=== PATIENT | female | born 1960 | race Caucasian/White ===

== ENCOUNTER 2019-12-25 19:51 | Emergency (ER) | payer SELFPAY ==
--- NOTE | ~2019-12-25 | XR_ITS ---
EXAMINATION: XR shoulder RT min 2V DATE: 12/25/2019 20:56 INDICATION: Right shoulder pain. Fall. TECHNIQUE: 4 views of right shoulder were obtained. COMPARISON: None. FINDINGS: Bone alignment is normal. No fracture. There is moderate osteoarthritis of glenohumeral mac nt and mild osteoarthritis of acromioclavicular joint. IMPRESSION: 1. Polyarticular osteoarthritis. Reviewed, dictated and finalized at location A.
--- NOTE | ~2019-12-25 | XR_ITS ---
EXAMINATION: XR foot LT min 3V DATE: 12/25/2019 20:55 INDICATION: Left foot pain. TECHNIQUE: 4 views of left foot were obtained. COMPARISON: None. FINDINGS: Bone alignment is normal. No acute fracture. There is a pin in medial malleolus. There is m oderate midfoot osteoarthritis. There is an enthesophyte at plantar aspect of calcaneal tuberosity. IMPRESSION: 1. Moderate midfoot osteoarthritis. Reviewed, dictated and finalized at location A.
--- NOTE | ~2019-12-25 | XR_ITS ---
EXAMINATION: XR knee LT min 4V DATE: 12/25/2019 20:56 INDICATION: Left knee pain. TECHNIQUE: 4 views of left knee were obtained. COMPARISON: None. FINDINGS: Bone alignment is normal. No fracture. There is mild tricompartmental osteoarthritis. There is a small knee joint effusion. IMPRESSION: 1. Mild left knee osteoarthritis. 2. Small left knee joint effusion. Reviewed, dictated and finalized at location A.
[2019-12-25 19:55] VITALS: BP 170/78; PULSE 99; RESP 18; TEMP 37.1; O2SAT 98
--- NOTE | 2019-12-25 22:00 | ED.GENADULT ---
HPI - General Adult General Chief complaint: Fall Stated complaint: fall Time Seen by Provider: 12/25/19 20:09 Source: patient Mode of arrival: ambulatory Limitations: no limitations History of Present Illness HPI narrative: Patient is a 59-year-old female who presents to emergency department for evaluation of injuries related to a ground-level fall after slipping in the shower yesterday patient notes aching pain of the left ankle laterally left knee laterally and right shoulder laterally that occurred after her fall pain is a mild aching pain worse with activity and movement. Patient denies head injury syncope loss of consciousness. Patient is taken [id number] medication with some improvement Related Data Allergies Allergy/AdvReac Type Severity Reaction Status Date / Time No Known Allergies Allergy Mild Verified 12/25/19 19:58 Review of Systems Review of Systems: All systems reviewed & are unremarkable except as noted in HPI and below PMFSH Past Medical History Medical History (Updated 12/25/19 @ 22:03 by Mariusz Cain PA-C) Obesity Surgical History Surgical History (Updated 12/25/19 @ 22:01 by Mariusz Cain PA-C) History of orthopedic surgery Social History Social History (Updated 12/25/19 @ 22:01 by Mariusz Cain PA-C) Smoking status: Never smoker Gender identity (if verbalized by the patient): Female Exam Narrative: Exam Narrative: GENERAL: Well-appearing, well-nourished, and in no acute distress. HEAD: Normocephalic, atraumatic. EYES: PERRLA and EOMI. ENT: Nares clear, no rhinorrhea or epistaxis. Mucous membranes moist. HEART: Regular rate and rhythm. No murmur heard. Normal peripheral pulses. EXTREMITIES: Tenderness of the left lateral ankle left lateral knee and right shoulder laterally with no deformities noted SKIN: Warm, dry, no rash. NEURO: No focal deficits. Alert and oriented x3. Cranial nerves II through XII grossly intact. Neurovascularly intact PSYCH: Normal mood and affect. Course Course Emergency Course: Patient in the room aware of case findings treatment plan and diagnosis agreeing to follow-up as directed Vital Signs Vital signs: Vital Signs Temperature 98.8 F 12/25/19 19:55 Pulse Rate 99 12/25/19 19:55 Respiratory Rate 18 12/25/19 19:55 Blood Pressure 170/78 H 12/25/19 19:55 Pulse Oximetry 98 12/25/19 19:55 Temperature 98.8 F 12/25/19 19:55 Pulse Rate 99 12/25/19 19:55 Respiratory Rate 18 12/25/19 19:55 Blood Pressure 170/78 H 12/25/19 19:55 Pulse Oximetry 98 12/25/19 19:55 Medical Decision Making MDM Narrative Medical decision making narrative: Patients injury or pain is consistent with musculoskeletal etiology. No signs of neurological or vascular compromise on exam. Compartments and tisues are soft without signs of compartment syndrome. Pain is felt appropriate for further evaluation on an outpatient basis. Vital Signs Vital Signs: Vital Signs Temperature 98.8 F 12/25/19 19:55 Pulse Rate 99 12/25/19 19:55 Respiratory Rate 18 12/25/19 19:55 Blood Pressure 170/78 H 12/25/19 19:55 Pulse Oximetry 98 12/25/19 19:55 Temperature 98.8 F 12/25/19 19:55 Pulse Rate 99 12/25/19 19:55 Respiratory Rate 18 12/25/19 19:55 Blood Pressure 170/78 H 12/25/19 19:55 Pulse Oximetry 98 12/25/19 19:55 Imaging Data Radiologist's impression: ITS Impressions Foot X-Ray 12/25/19 20:56 IMPRESSION: 1. Moderate midfoot osteoarthritis. Shoulder X-Ray 12/25/19 20:58 IMPRESSION: 1. Polyarticular osteoarthritis. Knee X-Ray 12/25/19 20:59 IMPRESSION: 1. Mild left knee osteoarthritis. 2. Small left knee joint effusion. Discharge Plan Discharge Clinical Impression: Left ankle sprain, Left knee sprain, Right shoulder strain Patient Disposition: Home, Self-Care Condition: Stable Instructions: Antibiotic Form, Muscle Strain (ED) Additional Instructions:
--- NOTE | 2019-12-25 22:00 | PC.NURSE ---
pt refusing norma wraps at this time provider aware and ok with decision
== END 2019-12-25 22:15 | disposition home or self-care (01) ==
PROVIDERS: Emergency Provider Emergency Medicine; PCP Internal Medicine
DX: S93.402A Sprain of unspecified ligament of left ankle, initial encounter (principal); S83.92XA Sprain of unspecified site of left knee, initial encounter; S46.911A Strain of unspecified muscle, fascia and tendon at shoulder and upper arm level, right arm, initial encounter; E66.9 Obesity, unspecified; Z68.41 Body mass index [BMI] 40.0-44.9, adult; M19.072 Primary osteoarthritis, left ankle and foot; M19.011 Primary osteoarthritis, right shoulder; M17.12 Unilateral primary osteoarthritis, left knee; W18.2XXA Fall in (into) shower or empty bathtub, initial encounter
CPT/HCPCS: 73030; 73564; 73630; 99284

== ENCOUNTER 2020-01-19 09:04 | Outpatient (RCR) | payer SELFPAY ==
--- NOTE | 2020-01-19 10:39 | PTOPEVAL ---
PHYSICAL THERAPY EVALUATION AND PLAN OF CARE 01-19-2020 The PT evaluation was completed for R shoulder and L knee pain. Carli was educated on a home exercise program, posture/positioning and progression of activity. Due to her insurance coverage, she is going to do the exercises on her own and to call for any concerns, or if additional PT is needed, to call for appointment. Recommendation is for 2x/week for 3 weeks[address] Mrs. Clemente will call for scheduling further appointments. Thank you for referring Carli Clemente to [facility]. Please review, sign, date and return this plan of care PHILL. I agree with and certify that the following plan of care is medically necessary. Referring Physician Date Attending Provider: Uziel Burleson MD *PT Outpatient Evaluation Start: 01/19/20 09:23 Document 01/19/20 09:10 SORAYA (Rec: 01/19/20 10:39 SORAYA [id number]) Therapy Assessment Status Assessment Status Assessment Status Evaluation Outpatient Past Medical History Past Medical History Source of Past Medical History Patient Neurological History Hx Neurological Disorders No Significant History Cardiovascular History Hx Hypertension Yes: meds Respiratory History Hx Asthma Yes: seasonal Gastrointestinal History Hx Gastrointestinal Disorders No Significant History Genitourinary History Hx Genitourinary Disorders No Significant History Musculoskeletal History Hx Arthritis Yes: R shoulder and L knee; Hx Orthopedic Surgery Yes: L rot cuff repair ~ 8 yr ago; L ankle ORIF 1999 Hematological History Hx Hematological Disorders No Significant History Endocrine History Hx Endocrine Disorders No Significant History HEENT History Hx HEENT Disorders No Significant History Evaluation Information Problem Diagnosis R shoulder pain, L knee pain Onset December 24, 2019 Subjective Information slipped in bath tub at hotel, Query Text:As Reported By Patient/ twisted knee, caught self with Family grab bar, did not hit the ground, knee pain onset; R shoulder had some pain from caring for ill mother, who is now in NH; after fall, R shoulder worse Diagnostic Tests X-Rays For This Problem Yes: R sh:mod QA A-c&GH joint; L knee mild OA,sm effusion Previous Treatments Previous Treatments For This Problem no previous PT Prior Level of Function Activity Level (Last 3 Months) Occupation office work Hand Dominance Right Activity of Daily Living Ability Independent Indoor/Home Mobility Independent Community Mobility Independent Stairs Ability Independent Functional Cognition (Planning, Shopping Independe
--- NOTE | 2020-03-06 16:17 | PCPTNOTE ---
PHYSICAL THERAPY DISCHARGE 03-06-2020 Attending Provider: Uziel Burleson MD Patient:Carli Clemente Date of :1960 Mrs. Clemente has not returned for any further treatments since the initial evaluation on 01/19/2020, for the diagnosis of pain in R shoulder and L knee. At the evaluation session, she reported she had issues with her insurance and not sure if she would return or not. She was issued home exercises. She will be discharged at this time. The goals were not addressed. Thank you for referring Carli to [facility]. Please review, sign, date and return this discharge summary PHILL. I have been updated about the patient's current status and I agree with discharge from the above service at this time. Referring Physician Date
== END 2020-03-07 07:44 | disposition home or self-care (01) ==
LOC: ANHPT 09:04
PROVIDERS: PCP Internal Medicine; Visit Provider Orthopaedic Surgery
DX: M25.511 Pain in right shoulder (principal); M25.562 Pain in left knee
CPT/HCPCS: 97162

== ENCOUNTER 2020-06-27 11:39 | Emergency (ER) | payer SELFPAY ==
--- NOTE | ~2020-06-27 | XR_ITS ---
EXAMINATION: XR esophogram water soluble DATE: 06/27/2020 12:43 NUTRITION DIRECTOR INDICATION: Foreign body in esophagus. Nausea and vomiting. TECHNIQUE: Water-soluble followed by thin barium contrast with gas effervescent crystals were adminis tered orally. Fluoroscopic images of the esophagus were obtained in various projections. The hypopha rynx was also examined. Thereafter, overhead images of the thoracic esophagrus were performed. 84 flu oroscopic images. FINDINGS: There is persistent narrowing of the distal esophagus at the gastroesophageal junction. No intraluminal foreign bodies are definitely identified. There is delayed passage of contrast from the distal esophagus into the stomach. No significant hiatal hernia or reflux is identified. No evidence for extravasation of contrast. IMPRESSION: 1. Persistent narrowing of the distal esophagus at the gastroesophageal junction with delayed passag e of contrast into the stomach, suspicious for stricture.No definite esophageal foreign bodies identi fied. Recommend GI consultation. Reviewed, dictated and finalized at location A. ITION DIRECTOR IMPRESSION: 1. Persistent narrowing of the distal esophagus at the gastroesophageal juncti on with delayed passage of contrast into the stomach, suspicious for stricture. No definite esophageal foreign bodies identified. Recommend GI consultation.
[2020-06-27 11:43] VITALS: BP 157/92; PULSE 108; RESP 19; TEMP 36.8; O2SAT 99
[2020-06-27 12:01] LABS: Basophils Absolute Auto 0.1 K/mm3 (0.0-0.1); Basophils Percent Auto 1.1 % (0.2-1.2); Eosinophils Percent Auto 0.4 % (0-4.4); Hematocrit 46.5 % (37.0-47.0); Hemoglobin 15.3 g/dL (12.0-15.0); Immature Granulocyte Absolute 0.07 K/mm3 (0.00-0.031); Immature Granulocyte Percent A 0.8 % (0-0.5); Lymphocytes Absolute Auto 2.56 K/mm3 (0.9-3.2); Lymphocytes Percent Auto 29.9 % (18.3-44.2); Mean Corpuscular HGB Conc 32.9 g/dl (32-36); Mean Corpuscular Hemoglobin 29.1 pg (26-34); Mean Corpuscular Volume 88.4 fl (80-100); Mean Platelet Volume 9.1 fl (7.4-10.4); Monocytes Absolute Auto 0.6 K/mm3 (0.1-0.6); Monocytes Percent Auto 6.4 % (2.6-8.5); Neutrophils Absolute Auto 5.3 K/mm3 (1.3-6.7); Neutrophils Percent Auto 61.4 % (45.5-73.1); Platelet Count Result 360 k/mm3 (150-375); Red Blood Count 5.26 M/mm3 (4.2-5.4); Red Cell Distribution Width 13.5 % (11.5-14.5); White Blood Count 8.6 K/mm3 (4.5-10.0)
--- NOTE | 2020-06-27 12:13 | ED.ABDPAIN ---
HPI - Abdominal Pain General Chief Complaint: Unspecified Stated Complaint: food stuck in esophagus Time Seen by Provider: 06/27/20 11:42 Source: patient Mode of arrival: ambulatory Limitations: no limitations History of Present Illness HPI narrative: Patient is a 60-year-old female who presents with mid sternal discomfort noting that she was eating last night had something become lodged patient has history of esophageal stricture patient knows that prior evening was unable to tolerate any liquids or saliva today she is able to tolerate her saliva continues to have some discomfort in the mid chest. Patient notes her certified diabetes educator has retired at this time. Patient with history of stricture and reflux. Patient on arrival also notes headache. Patient on arrival does not appear uncomfortable or in distress Related Data Home Medications Medication Instructions Recorded Confirmed glucosamine-chondroitin 2,000 15 ml PO BID 01/05/20 02/16/20 mg-1,200 mg/30 mL oral liquid lisinopril 20 mg tablet 20 mg PO DAILY 01/05/20 02/16/20 loratadine 10 mg tablet 10 mg PO DAILY 01/05/20 02/16/20 omeprazole 20 mg capsule,delayed 20 mg PO DAILY 01/05/20 02/16/20 release zolpidem 5 mg tablet 5 mg PO ONCE 01/05/20 02/16/20 Allergies Allergy/AdvReac Type Severity Reaction Status Date / Time acetaminophen [From Percocet] AdvReac Agitated Verified 06/27/20 11:48 oxycodone [From Percocet] AdvReac Agitated Verified 06/27/20 11:48 Review of Systems Review of Systems: All systems reviewed & are unremarkable except as noted in HPI and below PMFSH Past Medical History Medical History (Updated 06/27/20 @ 13:17 by Mariusz Cain PA-C) Arthritis of left knee Arthritis of right shoulder region Body mass index (BMI) 40.0-44.9, adult Obesity Surgical History Surgical History Broken ankle H/O shoulder surgery Left rotator cuff repair H/O: hysterectomy History of appendectomy Social History Social History Smoking status: Never smoker Gender identity (if verbalized by the patient): Female Exam Narrative: Exam Narrative: GENERAL: Well-appearing, well-nourished, and in no acute distress. HEAD: Normocephalic, atraumatic. EYES: PERRLA and EOMI. ENT: Nares clear, no rhinorrhea or epistaxis. Mucous membranes moist. CHEST: Clear to auscultation. No respiratory distress. No wheezes rales or rhonchi HEART: Regular rate and rhythm. No murmur heard. Normal peripheral pulses. ABDOMEN: Soft, nontender, nondistended EXTREMITIES: Normal range of motion. No edema. SKIN: Warm, dry, no rash. NEURO: No focal deficits. Alert and oriented x3. PSYCH: Normal mood and affect. Course Course Emergency Course: Patient evaluated in the emergency department had swallow study no obstruction does continue to have a stricture patient was hydrated and given medications in the emergency department tolerating p.o. intake will be sent home with GI follow-up discussion was made with certified diabetes educator who will follow the patient on an outpatient basis. Hemodynamically stable. ABCs intact Consultations Consultation #1: Discussed case with gastroenterology will follow the patient in clinic to discuss EGD planning Date: 06/27/20 Time: 13:14 Vital Signs Vital signs: Vital Signs Temperature 98.2 F 06/27/20 11:43 Pulse Rate 108 H 06/27/20 11:43 Respiratory Rate 19 06/27/20 11:43 Blood Pressure 157/92 H 06/27/20 11:43 Pulse Oximetry 99 06/27/20 11:43 Temperature 98.2 F 06/27/20 11:43 Pulse Rate 108 H 06/27/20 11:43 Respiratory Rate 19 06/27/20 11:43 Blood Pressure 157/92 H 06/27/20 11:43 Pulse Oximetry 99 06/27/20 11:43 MDM - Abdominal Pain MDM Narrative Medical decision making narrative: Patient with history of stricture was evaluated found to be safe for discharge ABCs stable hemodynamically stable elect
[2020-06-27 12:28] LABS: Alanine Aminotransferase 31 U/L (4-35); Albumin Level 4.4 g/dL (3.5-5.1); Alkaline Phosphatase 83 U/L (38-126); Anion Gap 11 mmol/L (8-16); Aspartate Amino Transferase 34 U/L (14-36); Bilirubin,Total 0.6 mg/dL (0.2-1.3); Blood Urea Nitrogen 18 mg/dL (7-17); Calcium 9.5 mg/dL (8.4-10.2); Carbon Dioxide 26 mmol/L (22-30); Chloride 102 mmol/L (98-107); Estimated Glomerular Filt Rate > 60; Glucose 107 mg/dL (65-105); Potassium 4.2 mmol/L (3.4-5.0); Sodium 139 mmol/L (137-145)
[2020-06-27] MEDS: KETOROLAC 30 MG/ML VIAL (*BKC) IV PUSH (13:00)
[2020-06-27] MEDS: GLUCAGON FOR INJ 1 MG VIAL IV PUSH (13:17)
[2020-06-27] MEDS: SODIUM CHLORIDE 0.9% IV 1,000 ML 999 ML IV CONT (13:17)
[2020-06-27] MEDS: PANTOPRAZOLE SODIUM IV 40 MG VIAL IV PUSH (13:17)
[2020-06-27] MEDS: HYOSCYAMINE SULFATE 0.125 MG TABLET PO (13:17)
[2020-06-27 13:37] VITALS: BP 148/80; PULSE 78; RESP 16; O2SAT 100
== END 2020-06-27 13:39 | disposition home or self-care (01) ==
PROVIDERS: Emergency Medicine Emergency Medical Services; Emergency Provider Emergency Medicine; PCP Internal Medicine
DX: K22.2 Esophageal obstruction (principal); M17.12 Unilateral primary osteoarthritis, left knee; M19.011 Primary osteoarthritis, right shoulder
CPT/HCPCS: 36415; 74220; 80053; 85025; 96374; 96375; 99284; A9270; C9113; J1610; J1885; J7030

== ENCOUNTER 2020-06-30 02:20 | Outpatient (CLI) | payer SELFPAY ==
[2020-06-30 20:00] LABS: SARS-CoV-2 RNA PCR Negative
== END 2020-06-30 02:21 | disposition home or self-care (01) ==
LOC: ANHCOVIDDT 02:20
PROVIDERS: PCP Internal Medicine; Visit Provider Internal Medicine Gastroenterology
DX: Z01.818 Encounter for other preprocedural examination (principal); Z20.828 Contact with and (suspected) exposure to other viral communicable diseases
CPT/HCPCS: 87635; C9803; U0003

== ENCOUNTER 2020-07-03 02:33 | Day surgery (SDC) | payer SELFPAY ==
[2020-06-28 13:48] VITALS: BMI 42.7
--- NOTE | 2020-07-03 08:34 | P.PNAN_ITS ---
Anes - Initial Pre Proc Eval Procedure: Operation Date: 07/03/20 10:30 Proposed Procedures p Esophagogastroduodenoscopy - Jim Robles MD Date/Time: 07/03/20 08:34 Surgeon: Jim Robles MD Pre Op Diagnosis: Esophageal Stricture Patient Data Age: 60 Gender: F Height: 1.63 m Weight: 113 kg Allergies Allergy/AdvReac Type Severity Reaction Status Date / Time acetaminophen [From Percocet] AdvReac Agitated Verified 07/03/20 09:42 oxycodone [From Percocet] AdvReac Agitated Verified 07/03/20 09:42 Home Medications Medication Instructions Recorded Confirmed Type lisinopril 20 mg tablet 20 mg PO DAILY 01/05/20 06/28/20 History omeprazole 20 mg capsule,delayed 20 mg PO DAILY 01/05/20 06/28/20 History release zolpidem 5 mg tablet 5 mg PO ONCE 01/05/20 06/28/20 History Patient hx anesthesia problems: none Family hx anesthesia problems: none [facility] Past Medical History Medical History (Updated 07/03/20 @ 08:35 by Rene Faye MD) Arthritis of left knee Arthritis of right shoulder region Asthma Body mass index (BMI) 40.0-44.9, adult HTN (hypertension) Obesity Surgical History Surgical History Broken ankle H/O shoulder surgery Left rotator cuff repair H/O: hysterectomy History of appendectomy Social History Social History Smoking status: Former smoker Alcohol intake: never Substance use type: does not use Living arrangements: with family Gender identity (if verbalized by the patient): Female Spiritual care concerns: No Anes - Eval Final PreProcedure Day of Procedure 07/03/20 08:34 Patient weight: morbidly obese Heart: regular rate and rhythm Lungs: clear to auscultation and normal air movement Airway: Mallampati scale class II Neurological: alert and oriented Last oral intake: >/= 8 hours ASA classification: III Emergent: no Anesthetic plan: proceed Anesthesia type and monitoring: general GIVS Informed Consent: The patient's anesthetic plan and its attendant risks and benefits were discussed with the patient/family/POA. Questions were solicited and answers provided to the satisfaction of the patient/family/POA.
[2020-07-03 09:44] VITALS: BP 146/82; PULSE 98; RESP 18; TEMP 36.9; O2SAT 96
[2020-07-03] MEDS: LACTATED RINGERS 1,000 ML 150 ML IV CONT (09:52)
--- NOTE | 2020-07-03 10:02 | P.CONGI_ITS ---
Assessment and Plan Assessment and plan (1) Dysphagia: Code(s): R13.10 - Dysphagia, unspecified Status: Acute Assessment and Plan: Patient complains of difficulty swallowing solid foods more so than liquid fo ods. She has had a history of esophageal stricture is had 3 prior endoscopies dilatations. She is maintained on omeprazole for presumed GE reflux disease. Plan is for an EGD for possible dilatation. Further recommendations may be given after endoscopy. (2) Body mass index (BMI) 40.0-44.9, adult: Code(s): Z68.41 - Body mass index [BMI]40.0-44.9, adult Status: Acute GI Consult Note Consult date/time: 07/03/20 10:02 HPI: Carli Clemente is a 60 year old female Presents for evaluation of difficulty swallowing. Patient states for several months has had difficulty swallowing. His solid food will hang up in the mid substernal portion the chest more often than liquids. She drinks liquids and soft foods with no difficulty. She denies any heartburn. In the past she has been told she had acid reflux. Currently on omeprazole 20 mg p.o. daily this appears control any burning. She states she has had an esophageal stricture with a ring dilated at least 3 prior endoscopies elsewhere. Her last endoscopy was about 4 years ago. Her family history is noncontributory. Today she presents for EGD. Review of Systems Review of Systems: All systems reviewed & are unremarkable except as noted in HPI and below PMFSH Past Medical History Medical History Arthritis of left knee Arthritis of right shoulder region Asthma Body mass index (BMI) 40.0-44.9, adult HTN (hypertension) Obesity Surgical History Surgical History Broken ankle H/O shoulder surgery Left rotator cuff repair H/O: hysterectomy History of appendectomy Social History Social History Smoking status: Former smoker Alcohol intake: never Substance use type: does not use Living arrangements: with family Gender identity (if verbalized by the patient): Female Spiritual care concerns: No Meds Home Medications and Allergies Home Medications Medication Instructions Recorded Confirmed Type lisinopril 20 mg tablet 20 mg PO DAILY 01/05/20 06/28/20 History omeprazole 20 mg capsule,delayed 20 mg PO DAILY 01/05/20 06/28/20 History release zolpidem 5 mg tablet 5 mg PO ONCE 01/05/20 06/28/20 History Allergies Allergy/AdvReac Type Severity Reaction Status Date / Time acetaminophen [From Percocet] AdvReac Agitated Verified 07/03/20 09:42 oxycodone [From Percocet] AdvReac Agitated Verified 07/03/20 09:42 Vital Signs Vital Signs - 24 hr 07/03/20 09:44 Temperature 98.5 F Pulse Rate 98 Respiratory Rate 18 Blood Pressure 146/82 H Pulse Oximetry 96 Exam Narrative: Exam Narrative: Physical exam reveals patient be alert. Vital signs stable. HEENT exam unremarkable. Lungs are clear to auscultation and percussion. Heart is without murmur or extra sounds. Abdominal exam is somewhat obese. Bowel sounds are present soft nontender no obvious organomegaly. Rectal exam is deferred at this time.
[2020-07-03] MEDS: BENZOCAINE (*SP) 60 ML SPRAY CAN (HURRICAINE) 1 SPRAY MUCOUS MEM (10:06)
[2020-07-03 10:13] VITALS: BP 147/95; PULSE 96; O2SAT 93
[2020-07-03 10:23] VITALS: BP 140/86; PULSE 92; O2SAT 96
[2020-07-03 10:33] VITALS: BP 151/92; PULSE 77; O2SAT 96
== END 2020-07-03 11:01 | disposition home or self-care (01) ==
PROVIDERS: PCP Internal Medicine; Visit Provider Internal Medicine Gastroenterology
PROC: 0DJ08ZZ Inspection of Upper Intestinal Tract, Via Natural or Artificial Opening Endoscopic (ICD-10-PCS; CPT 43235; principal; 2020-07-03 10:30)
DX: K22.2 Esophageal obstruction (principal); R13.10 Dysphagia, unspecified; I10 Essential (primary) hypertension; M17.12 Unilateral primary osteoarthritis, left knee; M19.011 Primary osteoarthritis, right shoulder; Z87.891 Personal history of nicotine dependence; E66.01 Morbid (severe) obesity due to excess calories; Z68.41 Body mass index [BMI] 40.0-44.9, adult
CPT/HCPCS: 43235; 43450; J2704; J7120

== ENCOUNTER 2022-02-11 01:48 | Day surgery (SDC) | payer OTHER, SELFPAY ==
[2022-02-05 10:38] VITALS: BMI 41.1
--- NOTE | 2022-02-05 10:46 | PC.NURSE ---
Report to the Outpatient Waiting Room, entrance under the green pavilion located off [facility], at time 0730 on date 02/11/22. OR Time: 0930. - You and your visitor will be asked a series of questions to screen for COVID 19 for your protection. - Only one visitor is allowed at this time. - The patient visitor is requested to leave or wait in car when not with patient. - A mask is required within the hospital. Patients may have clear liquids (water, carbonated beverages, clear teas, apple juice) until 3 hours prior to surgery with a maximum of 20 ounces. - No food from midnight until time of surgery Take the following medications with a SIP of water the morning of surgery: PAIN PILL (IF NEEDED) Medications to discontinue per physician: N/A Date to take last dose: N/A Please no make-up, nail divehi, hairspray, perfume, deodorant, or body powder the day of surgery. No jewelry (including any body piercings) or valuables the day of surgery, leave them at home. Please take a shower or bath the night before, or the morning of, surgery with an antibacterial soap. Wear comfortable, loose fitting clothing. - Jewelry must be removed prior to entering the operating room. Rings and piercings that are not removed may be cut off. - The hospital will not accept responsibility for valuables. - Please leave all valuables, including medications, at home the day of surgery. If you are going home after surgery, a licensed wrecker driver must drive you home. - NO public transportation without another adult. - We recommend that an adult stay with you for 24 hours following discharge. - We also recommend that you do not drive, make important decision, drink alcoholic beverages, or take any drugs that were not prescribed by your health care provider for at least 24 hours after your discharge time. Follow any additional instructions given to you from your surgeon. If you or anyone in your household have experienced Covid symptoms in the past week, please notify your surgeon or the nurse liaison at the phone number below for possible testing. Telephone instructions given to PT - GILMA ZHAO and asked if any additional questions and then verbalized understanding. Patient advised to call surgeon office or pre surgery nurse liaison [phone] if any additional questions.
--- NOTE | 2022-02-08 14:28 | WPDANESEPPF ---
Anes - Initial Pre Proc Eval Procedure: Operation Date: 02/11/22 09:30 Proposed Procedures p Open Reduction Internal Fixation of Right Bimalleolar Ankle Fracture - Uziel Burleson MD Date/Time: 02/08/22 14:28 Surgeon: Uziel Burleson MD Pre Op Diagnosis: right bimalleolar fracture Patient Data Age: 61 Gender: F Height: 1.63 m Weight: 108.86 kg Allergies Allergy/AdvReac Type Severity Reaction Status Date / Time No Known Allergies Allergy Verified 02/11/22 07:55 Home Medications Medication Instructions Recorded Confirmed Type lisinopril 20 mg tablet 20 mg PO HS 01/05/20 02/11/22 History aspirin 325 mg tablet 325 mg PO DAILY 02/04/22 02/11/22 History hydrocodone 5 mg-acetaminophen 325 1 tablet PO Q4-6H PRN pain #30 tabs 02/04/22 02/11/22 Rx mg tablet Patient hx anesthesia problems: none Family hx anesthesia problems: none Results Review: All pre-operative results and documents have been reviewed as part of the pre-operative evaluation. [facility] Past Medical History Medical History (Updated 02/08/22 @ 14:28 by Rene Faye MD) Arthritis of left knee Arthritis of right shoulder region Asthma Body mass index (BMI) 40.0-44.9, adult HTN (hypertension) Morbid obesity with BMI of 40.0-44.9, adult Obesity Surgical History Surgical History Broken ankle H/O shoulder surgery Left rotator cuff repair H/O: hysterectomy History of appendectomy Social History Social History Smoking status: Never smoker Alcohol intake: never Substance use: never Substance use type: does not use Living arrangements: with family Gender identity (if verbalized by the patient): Female Spiritual care concerns: No Anes - Eval Final PreProcedure Day of Procedure 02/08/22 14:28 Patient weight: morbidly obese Heart: regular rate and rhythm Lungs: clear to auscultation and normal air movement Airway: Mallampati scale class II Neurological: alert and oriented Last oral intake: >/= 8 hours ASA classification: III Emergent: no Anesthetic plan: proceed Anesthesia type and monitoring: general LMA Results Review: All pre-operative results and documents have been reviewed as part of the pre-operative evaluation. Informed Consent: The patient's anesthetic plan and its attendant risks and benefits were discussed with the patient/family/POA. Questions were solicited and answers provided to the satisfaction of the patient/family/POA.
[2022-02-11] MEDS: ACETAMINOPHEN 500 MG TABLET 1000 MG PO (08:03)
[2022-02-11 08:27] VITALS: BP 125/79; PULSE 104; RESP 18; TEMP 37.6; O2SAT 96
--- NOTE | 2022-02-11 08:35 | ECG_ITS ---
Measurements Intervals [place] Rate: 83 P: 52 [place]: 132 QRS: 16 QRSD: 89 T: 30 QT: 363 QTc: 427 Interpretive Statements SINUS RHYTHM NORMAL ECG NO PREVIOUS ECG AVAILABLE FOR COMPARISON Electronically Signed On 02-11-2022 14:13:26 CDT by Orlando Cortes M.D.
[2022-02-11] MEDS: LACTATED RINGERS 1,000 ML 30 ML IV CONT (08:55)
[2022-02-11] MEDS: KETOROLAC 15 MG/ML VIAL (*BKC) IV PUSH (08:55)
--- NOTE | 2022-02-11 10:03 | WPDHPUPDATE1 ---
History and Physical Update Update Date/Time: 02/11/22 10:04 History and Physical has been reviewed, including an updated exam of the patient. In examining her right ankle, the medial blister was weeping a bit. Lateral blisters dorsal full of fluid. Decision was made to unroof these, dressed with Neosporin and Telfa after which she was rewrapped and splint reapplied to the right lower extremity. Surgery will be postponed until the end of the week to give this a chance to re-epithelialization. Discussed fully with the patient and her .
== END 2022-02-11 10:23 | disposition home or self-care (01) ==
PROVIDERS: PCP Internal Medicine; Visit Provider Orthopaedic Surgery
DX: S82.841A Displaced bimalleolar fracture of right lower leg, initial encounter for closed fracture (principal); S90.521A Blister (nonthermal), right ankle, initial encounter; Z53.09 Procedure and treatment not carried out because of other contraindication; W01.0XXA Fall on same level from slipping, tripping and stumbling without subsequent striking against object, initial encounter; Z79.82 Long term (current) use of aspirin; M19.90 Unspecified osteoarthritis, unspecified site; J45.909 Unspecified asthma, uncomplicated; I10 Essential (primary) hypertension; E66.01 Morbid (severe) obesity due to excess calories; Z68.41 Body mass index [BMI] 40.0-44.9, adult; Z87.891 Personal history of nicotine dependence
CPT/HCPCS: 93005; 99213; A9270; G0463; J1885; J7120

== ENCOUNTER 2022-02-14 00:54 | Day surgery (SDC) | payer OTHER, SELFPAY ==
[2022-02-11 14:26] VITALS: BMI 41.2
--- NOTE | 2022-02-11 14:29 | PC.NURSE ---
Report to the Outpatient Waiting Room, entrance under the green pavilion located off [facility], at time 1000 on date 02/14/22. OR Time: 1200. - You and your visitor will be asked a series of questions to screen for COVID 19 for your protection. - Only one visitor is allowed at this time. - The patient visitor is requested to leave or wait in car when not with patient. - A mask is required within the hospital. Patients may have clear liquids (water, carbonated beverages, clear teas, apple juice) until 3 hours prior to surgery with a maximum of 20 ounces. - No food from midnight until time of surgery Take the following medications with a SIP of water the morning of surgery: PAIN PILL (IF NEEDED) Medications to discontinue per physician: N/A Date to take last dose: N/A Please no make-up, nail slovak, hairspray, perfume, deodorant, or body powder the day of surgery. No jewelry (including any body piercings) or valuables the day of surgery, leave them at home. Please take a shower or bath the night before, or the morning of, surgery with an antibacterial soap. Wear comfortable, loose fitting clothing. - Jewelry must be removed prior to entering the operating room. Rings and piercings that are not removed may be cut off. - The hospital will not accept responsibility for valuables. - Please leave all valuables, including medications, at home the day of surgery. If you are going home after surgery, a licensed special needs bus driver must drive you home. - NO public transportation without another adult. - We recommend that an adult stay with you for 24 hours following discharge. - We also recommend that you do not drive, make important decision, drink alcoholic beverages, or take any drugs that were not prescribed by your health care provider for at least 24 hours after your discharge time. Follow any additional instructions given to you from your surgeon. If you or anyone in your household have experienced Covid symptoms in the past week, please notify your surgeon or the nurse liaison at the phone number below for possible testing. Telephone instructions given to PT - GILMA ZHAO and asked if any additional questions and then verbalized understanding. Patient advised to call surgeon office or pre surgery nurse liaison [phone] if any additional questions.
--- NOTE | 2022-02-13 10:47 | WPDANESEPPF ---
Anes - Initial Pre Proc Eval Procedure: Operation Date: 02/14/22 12:00 Proposed Procedures p Open Reduction Internal Fixation of Right Bimalleolar Ankle Fracture - Uziel Burleson MD Date/Time: 02/13/22 10:47 Surgeon: Uziel Burleson MD Pre Op Diagnosis: right ankle fracture Patient Data Age: 61 Gender: F Height: 1.63 m Weight: 108.9 kg Allergies Allergy/AdvReac Type Severity Reaction Status Date / Time No Known Allergies Allergy Verified 02/14/22 10:57 Home Medications Medication Instructions Recorded Confirmed Type lisinopril 20 mg tablet 20 mg PO HS 01/05/20 02/14/22 History aspirin 325 mg tablet 325 mg PO DAILY 02/04/22 02/14/22 History hydrocodone 5 mg-acetaminophen 325 1 tablet PO Q4-6H PRN pain #30 tabs 02/04/22 02/14/22 Rx mg tablet Patient hx anesthesia problems: none Family hx anesthesia problems: none Results Review: All pre-operative results and documents have been reviewed as part of the pre-operative evaluation. [facility] Past Medical History Medical History (Updated 02/08/22 @ 14:28 by Rene Faye MD) Arthritis of left knee Arthritis of right shoulder region Asthma Body mass index (BMI) 40.0-44.9, adult HTN (hypertension) Morbid obesity with BMI of 40.0-44.9, adult Obesity Surgical History Surgical History Broken ankle H/O shoulder surgery Left rotator cuff repair H/O: hysterectomy History of appendectomy Social History Social History Smoking status: Never smoker Alcohol intake: never Substance use: never Substance use type: does not use Living arrangements: with family Gender identity (if verbalized by the patient): Female Spiritual care concerns: No Anes - Eval Final PreProcedure Day of Procedure 02/13/22 10:47 Patient weight: morbidly obese Heart: regular rate and rhythm Lungs: clear to auscultation and normal air movement Airway: Mallampati scale class II Neurological: alert and oriented Last oral intake: >/= 8 hours ASA classification: III Emergent: no Anesthetic plan: proceed Anesthesia type and monitoring: general LMA Results Review: All pre-operative results and documents have been reviewed as part of the pre-operative evaluation. Informed Consent: The patient's anesthetic plan and its attendant risks and benefits were discussed with the patient/family/POA. Questions were solicited and answers provided to the satisfaction of the patient/family/POA.
[2022-02-14] VITALS (11 sets, daily range): BP systolic 123–157; BP diastolic 72–97; PULSE 69–103; RESP 12–15; TEMP 36.8–36.9; O2SAT 95–100
--- NOTE | ~2022-02-14 | XR_ITS ---
EXAMINATION: XR surgery orthopedic DATE: 02/14/2022 13:51 INDICATION: ORIF right ankle fracture TECHNIQUE: 4 fluoroscopic images of the right ankle were obtained during procedure performed by Dr. Michael dias. Radiologist was not present for the imaging or procedure. The amount of fluoroscopy time used du ring this procedure was 0.6 minutes. COMPARISON: 02/04/22 FINDINGS: Interval open reduction internal fixation of the previously seen trimalleolar fracture of the distal right ankle. The medial malleolar fractures fixed with cannulated lag screw with washer. Interfragmen tary screw and lateral claw plate and screw fixation of the lateral malleolar fracture. The nondispla spencer posterior malleolar fracture remains unfixed. Alignment appears near-anatomic with a congruent an kle mortise. There are skin rosey anterior and lateral to the ankle. IMPRESSION: 1. Near-anatomic alignment post open reduction internal fixation of a trimalleolar fracture of the ri ght ankle. Reviewed, dictated and finalized at location A. IMPRESSION: 1. Near-anatomic alignment post open reduction internal fixation of a trimalleo lar fracture of the right ankle.
[2022-02-14] MEDS: LACTATED RINGERS 1,000 ML 30 ML IV CONT ×3 (10:30→15:30)
[2022-02-14] MEDS: ACETAMINOPHEN 500 MG TABLET 1000 MG PO (11:05)
[2022-02-14] MEDS: KETOROLAC 15 MG/ML VIAL (*BKC) IV PUSH (11:05)
--- NOTE | 2022-02-14 11:46 | WPDHPUPDATE1 ---
History and Physical Update Update Date/Time: 02/14/22 11:46 History and Physical has been reviewed, including an updated exam of the patient. There are NO changes in the patient's condition. Risks, benefits, and alternatives have been discussed and questions answered. Patient agrees to proceed with procedure.
[2022-02-14] MEDS: ceFAZolin 2 GM/D5W 50 ML 2 GM/50 ML BAG IVPB (12:00)
[2022-02-14] MEDS: fentaNYL CITRATE INJ (*CRX) 100 MCG/2 ML VIAL 25 MCG IV PUSH ×4 (13:58→14:33)
--- NOTE | 2022-02-14 14:21 | P.OP_ITS ---
Procedure Note - Detailed Date of Procedure 02/14/22 Pre-op Diagnosis right bimalleolar ankle fracture Post-op Diagnosis Same Procedure Performed ORIF right ankle Surgeon Uziel Burleson MD Photocomposition Keyboard Operator Flynn Anesthesia General Description of Procedure Patient was identified and proper site identified. She was taken to the operating room and transferred to the OR table placing her supine taking care to pad her torso and extremities. After general anesthetic induction and intubation, a nonsterile tourniquet was placed high on the right thigh. Right lower extremity was prepped and draped in usual sterile fashion. The areas with the blistering had been were re-epithelializd very nicely. Extremity was exsanguinated and tourniquet was inflated to 300 millimeters of mercury remaining up for 70 minutes. Longitudinal incision was made over the distal fibula. Sharp dissection carried down to the fracture site. Care was taken to protect neurovascular structures. Fracture was identified, cleared of debris and then provisionally reduced with fluoroscopic assistance. A 3.5 millimeter lag screw was placed across the fracture site. A five hole lateral hook plate from the [employer]th[employer] set was then contoured to fit the distal fibula and applied with fluoroscopic assistance to avoid penetration of the joint. This gave a virtually anatomic reduction of the fibula. The wound was irrigated with sterile saline. Skin edges reapproximated with two 0 Quill and rosey. Attention was turned to the medial side. Small incision was made distal to the tip of the medial malleolus. While holding the malleolus reduced guide pin for the 4.0 cannulated screws was passed under fluoroscopic control over which a 4 millimeter lag screw with washer was used to secure the medial malleolar fragment. The reduction was assessed fluoroscopically and noted to be virtually anatomic. Medial wound was irrigated and then skin edges reapproximated with four 0 Monocryl and rosey. Sterile dressing was applied. Tourniquet was released. A well-padded stirrup type ankle splint was applied with the ankle in neutral. She tolerated the procedure well. She was awakened, extubated taken recovery area in stable condition. There were no known intraoperative complications. Estimated blood loss was negligible. She received perioperative antibiotics. Estimated Blood Loss 5 Tourniquet Time 70 Drains No Packing No Pathology None sent Complications No immediate complications Condition Stable Disposition PACU
--- NOTE | 2022-02-14 14:29 | SUR.PHASEI ---
1410 dr shaikh at bedside to administer a block to patient rt leg, block administered pt doing okay, vital signs stable on 8L simple mask oxygen
[2022-02-14] MEDS: ONDANSETRON INJ 4 MG/2 ML VIAL IV PUSH (15:02)
[2022-02-14] MEDS: diphenhydrAMINE HCl INJ 50 MG/ML VIAL 12.5 MG IV PUSH (16:18)
[2022-02-14] MEDS: SCOPOLAMINE 1.5 MG PATCH TRANSDERM (16:21)
--- NOTE | 2022-02-14 16:26 | SUR.PHASEI ---
CORRECTION: CHARTING DONE AT 1425 SHOULD BE FOR 1455.
--- NOTE | 2022-02-14 16:27 | SUR.PHASEII ---
CORRECTION: CHARTING DONE AT 1425 SHOULD BE FORE 1555.
== END 2022-02-14 17:00 | disposition home or self-care (01) ==
PROVIDERS: PCP Internal Medicine; Visit Provider Orthopaedic Surgery
PROC: (CPT 27814; principal; 2022-02-14 12:00)
DX: S82.841A Displaced bimalleolar fracture of right lower leg, initial encounter for closed fracture (principal); W01.0XXA Fall on same level from slipping, tripping and stumbling without subsequent striking against object, initial encounter; I10 Essential (primary) hypertension; E66.01 Morbid (severe) obesity due to excess calories; Z68.41 Body mass index [BMI] 40.0-44.9, adult
CPT/HCPCS: 27814; 99199; A9270; C1713; C1769; J0690; J1100; J1170; J1200; J1885; J2250; J2370; J2405; J2704; J3010; J7120

== ENCOUNTER 2024-03-01 13:22 | Outpatient (CLI) | payer SELFPAY ==
--- NOTE | 2024-03-01 | ECG_ITS ---
Test Date: 2024-03-01 13:55:46 Measurements Intervals [place] Rate: 94 P: 54 [place]: 132 QRS: 18 QRSD: 86 T: 36 QT: 341 QTc: 428 Interpretive Statements SINUS RHYTHM POSSIBLE LEFT ATRIAL ENLARGEMENT [-0.1mV P WAVE IN V1/V2] POSSIBLE INFERIOR MYOCARDIAL INFARCTION , PROBABLY OLD [30 ms Q WAVE IN II/aVF] No previous ECG available for comparison Electronically Signed On 03-02-2024 10:14:44 CDT by Davi Pearce M.D.
== END 2024-03-01 13:23 | disposition home or self-care (01) ==
PROVIDERS: PCP Internal Medicine; Visit Provider Podiatrist Foot & Ankle Surgery
DX: R03.0 Elevated blood-pressure reading, without diagnosis of hypertension (principal)
CPT/HCPCS: 93005

== ENCOUNTER 2025-04-18 02:02 | Day surgery (SDC) | payer SELFPAY ==
[2025-04-05 11:56] VITALS: BMI 33.7
--- OUTSIDE RECORDS SUMMARY | 2025-04-18 02:06 | XMS_ITS | Clinical Summary ---
Author Organization [facility] Address [address] [place] [id number] Care Team Providers Care Metal Furnace Operator Name Role Phone Unavailable Primary Care Provider Unavailabl e Social History Tobacco Use Types Packs/Day Years Used Date Smoking Tobacco: Never Assessed Comments Unknown Sex and Gender Information Value Date Recorded Sex Assigned at Not on file Legal Sex Female 6:44 PM CURBER Gender Identity Not on file Sexual Orientation Not on file Plan of Treatment Health Maintenance Due Date Last Done Comments DTAP/TDAP/TD VACCINES (1 - Tdap) 1979 HPV/Cotest (21-29) 1981 CERVICAL CANCER SCREENING 1990 HPV/Cotest (30-65) 1990 PAP SMEAR 1990 COLORECTAL SCREENING 2005 Colorectal Cancer Screening 2005 FIT-DNA Q 3 years 2005 FIT/FOBT Q 1 year 2005 Flex Sig/CT Colonography Q 5 years 2005 ZOSTER VACCINE (1 of 2) 2010 RSV VACCINE (60+ or ) (1 - Risk 60-74 years 1-dose series) 2020 BREAST CANCER SCREENING 08/21/2022 08/21/19 22, 08/21/2021, 06/20/2016, Additional history exists INFLUENZA VACCINE (#1) 2025
--- OUTSIDE RECORDS SUMMARY | 2025-04-18 02:06 | XMS_ITS | Patient Health Record ---
Author Organization [facility] Address [address] [place], [place] [address] Care Team Providers Care Decorating Equipment Setter Name Role Phone Azael Stern Primary Care Provider Portia Walker Unavailable [phone] Allergies No Known Allergies Reason For Referral No Information Medications Medication SIG (Take, Route, Frequency, Duration) Notes Start Date End Date Status Tirzepatide compounded 25mg/ml solution 2.5mg subcutaneous weekly 5mg 03/29/2025 Active Lisinopril-hydroCHLOROthia zide 20-12.5 MG Tablet TAKE 1 TABLET BY MOUTH TWICE DAILY Oral; Duration: 90 Days Active Problems Problem Type SNOMED Code ICD Code Onset Dates Problem Status W/U Status Risk Notes Problem Obesity due to excess calories (497751432) Other obesity due to excess calories (E66.09) Active confirmed Problem Fatigue (83206229) Other fatigue (R53.83) Active confirmed Vital Signs Heart Rate 98 /min 02/28/2025 Height-cm 160.02 cm 03/29/2025 Blood pressure diastolic 75 mm Hg 03/29/2025 Weight-kg 86.18 kg 03/29/2025 Height 63 in 03/29/2025 Blood pressure systolic 131 mm Hg 03/29/2025 Weight 190 lbs 03/29/2025 BMI 33.65 kg/m2 03/29/2025 Encounters Encounter Location Date Provider Diagnosis [address] [id number] 02/28/2025 Portia Walker Other obesity due to excess calories E66.09 ; Dietary counseling and surveillance Z71.3 ; Other fatigue R53.83 and Encounter for screening for other disorder Z13.[address] [phone] 03/29/2025 Portia Walker Other obesity due to excess calories E66.09 ; Dietary counseling and surveillance Z71.3 ; Other fatigue R53.83 and Encounter for screening for other disorder Z13.89 Assessments Encounter Date Diagnosis (ICD Code) Assessment Notes Treatment Notes Treatment Clinical Notes Section Notes 02/28/2025 Dietary counseling and surveillance (ICD-10 - Z71.3) 03/29/2025 Other obesity due to excess calories (ICD-10 - E66.09) 02/28/2025 Other obesity due to excess calories (ICD-10 - E66.09) 02/28/2025 Other fatigue (ICD-10 - R53.83) 03/29/2025 Dietary counseling and surveillance (ICD-10 - Z71.3) 02/28/2025 Encounter for screening for other disorder (ICD-10 - Z13.89) 03/29/2025 Other fatigue (ICD-10 - R53.83) 03/29/2025 Encounter for screening for other disorder (ICD-10 - Z13.89) 02/28/2025 Other Patient presents for follow-up of tirzepatide compound therapy for health management. Gilma, a patient nearing 65 years old, presents for weight management after previously using semaglutide and having a right hip replacement in June. ObesityAssessment : Patient reports previous weight loss of almost 60 pounds with semaglutide, but has regained some weight due to stress eating following the loss of her mother. She discontinued semaglutide due to decreased efficacy after about 6 months of use and financial constraints. Patient is currently engaged in water aerobics 5 times per week, which is beneficial for weight management and inflammation reduction. She expresses difficulty with adequate water intake but reports no issues with protein consumption.Plan: - Initiate tirzepatide therapy compounded with B12 - Provide 4 shots, with the understanding that the last dose will on March 19 - Informed patient of upcoming change in compounding from B12 to glycine- Continue water aerobics 5 times per week- Incorporate additional resistance band exercises, particularly on days when water aerobics is less intense- Recommend 30-minute Pilates video 3-4 days per week- Emphasize protein and fiber-rich diet - Limit carbohydrates and sugars - If consuming fruit, focus on berries and melons, paired with protein sources- Increase water intake - Recommend using liquid IV once daily for hydration boost- Avoid weighing frequently; focus on how clothes fit as a measure of progress- Follow up in one month to assess progress Labs:- No lab results reviewed at this visit.- Ordered labs for follow-up monitoring: metabolic panel, HbA1c, electrolytes. Clinical Management:- Tirzepatide dose maintained/adjust ed to [dose], with discussion of efficacy and side effects.- Provided education on medication adherence, potential GI side effects, and when to seek care.- Addressed constipation with dietary fiber increase, hydration, stool softeners as needed.- Discussed strategies to combat fatigue, including sleep hygiene and activity pacing.- Reinforced lifestyle interventions: diet and exercise counseling provided. - Dietary habits reviewed; counseling provided regarding balanced nutrition, portion control, and hydration. Plan:- Continue tirzepatide therapy with close monitoring.- Follow-up labs to assess response and safety.- Patient advised to report any new or worsening symptoms promptly.- Next visit scheduled in 4 weeks. MDM Level: Moderate Complexity- Management of multiple chronic conditions- Medication management with dose adjustment and counseling- Labs ordered for future monitoring 03/29/2025 Other Patient presents for follow-up of tirzepatide compound therapy for health management. Gilma, a female patient, presents for follow-up on weight management and preventive care. ObesityAssessment : Patient is currently on tirzepatide for weight management. She reports making efforts to eat less and has lost 2 pounds in the past month. Patient has been exercising, including going to the gym and swimming. She has previously been on semaglutide, which may contribute to increased resistance to the medication.Plan:- Increase stirzeptaide emaglutide dose from 2.5 mg to 5 mg- Continue current exercise regimen (gym and swimming)- Maintain high protein and fiber intake- Monitor for side effects, particularly vomiting and constipation- Follow up in one month to reassess weight loss progress and medication efficacy Preventive CareAssessment: Patient has not had recent gynecological care. She expresses awareness of the importance of regular check-ups and screening, including mammograms and monitoring for vaginal cancer.Plan:- Schedule gynecological examination and preventive screenings when patient obtains Medicare coverage- Emphasize importance of regular gynecological check-ups and cancer screenings Clinical Management:- Tirzepatide dose increased to 5mg, with discussion of efficacy and side effects.- Provided education on medication adherence, potential GI side effects, and when to seek care.- Addressed constipation with dietary fiber increase, hydration, stool softeners as needed.- Discussed strategies to combat fatigue, including sleep hygiene and activity pacing.- Reinforced lifestyle interventions: diet and exercise counseling provided. - Dietary habits reviewed; counseling provided regarding balanced nutrition, portion control, and hydration. Plan:- Continue tirzepatide therapy with close monitoring.- Follow-up labs to assess response and safety.- Patient advised to report any new or worsening symptoms promptly.- Next visit scheduled in 4 weeks. MDM Level: Moderate Complexity- Management of multiple chronic conditions- Medication management with dose adjustment and counseling- Labs ordered for future monitoring Plan Of Treatment No Information Medical (General) History Medical History History ICD Code hypertension Surgical History Surgery Date(Month/Year) hip replacement right 06/2024
[2025-04-18 11:31] VITALS: BP 123/74; PULSE 72; RESP 20; TEMP 36.1; O2SAT 100; BMI 34.3
[2025-04-18] MEDS: LACTATED RINGERS 1,000 ML 150 ML IV CONT (11:39)
--- NOTE | 2025-04-18 12:12 | WPDANESEPPF ---
Anes - Initial Pre Proc Eval Procedure: Operation Date: 04/18/25 12:30 Proposed Procedures p Esophagogastroduodenoscopy EGD - Gabriel Horne MD Date/Time: 04/18/25 12:12 Surgeon: Gabriel Horne MD Pre Op Diagnosis: Esophageal obstruction Patient Data Age: 64 Gender: F Height: 1.6 m Weight: 88 kg Last Vital Signs Temp 36.1 C L 04/18/25 11:31 Pulse 72 04/18/25 11:31 Resp 20 04/18/25 11:31 BP 123/74 04/18/25 11:31 Pulse Ox 100 04/18/25 11:31 O2 Del Method Room Air 04/18/25 11:31 Allergies Allergy/AdvReac Type Severity Reaction Status Date / Time No Known Allergies Allergy Verified 04/18/25 11:30 Home Medications ?Medication ?Instructions ?Recorded ?Confirmed ?Type lisinopril 20 mg tablet 20 mg PO HS 01/05/20 04/05/25 History acetaminophen 650 mg 650 mg PO Q12H 06/11/22 04/05/25 History tablet,extended release (Tylenol Arthritis Pain) aspirin 81 mg capsule 81 mg PO DAILY 06/11/22 04/18/25 History lisinopril 20 1 tablet PO BID 04/05/25 04/18/25 History mg-hydrochlorothiazide 12.5 mg tablet tirzepatide (weight loss) 2.5 2.5 mg subcut WEEKLY 04/05/25 04/18/25 History mg/0.5 mL subcutaneous pen injector (Zepbound) Patient hx anesthesia problems: none Family hx anesthesia problems: none Results Review: All pre-operative results and documents have been reviewed as part of the pre-operative evaluation. [facility] Past Medical History Medical History Degenerative arthritis of knee, bilateral Morbid obesity with BMI of 40.0-44.9, adult Asthma HTN (hypertension) Body mass index (BMI) 40.0-44.9, adult Arthritis of right shoulder region Arthritis of left knee Obesity Surgical History Surgical History Bimalleolar fracture of right ankle ORIF February 14, 2022 H/O shoulder surgery Left rotator cuff repair History of appendectomy Broken ankle H/O: hysterectomy Social History Social History Smoking status: Never smoker Alcohol intake: never Substance use: never Substance use type: does not use Living arrangements: with family Gender identity (if verbalized by the patient): Female Sexual Orientation (if Verbalized by the Patient): Straight or Heterosexual Spiritual care concerns: No Anes - Eval Final PreProcedure Day of Procedure 04/18/25 12:12 Patient weight: obese Heart: regular rate and rhythm Lungs: clear to auscultation Airway: Mallampati scale class II Neurological: alert and oriented Last oral intake: >/= 8 hours ASA classification: II Emergent: no Anesthetic plan: proceed Anesthesia type and monitoring: general GIVS and standard monitoring Results Review: All pre-operative results and documents have been reviewed as part of the pre-operative evaluation. Informed Consent: The patient's anesthetic plan and its attendant risks and benefits were discussed with the patient/family/POA. Questions were solicited and answers provided to the satisfaction of the patient/family/POA.
--- NOTE | 2025-04-18 12:48 | PM.HPGS ---
History of Present Illness History of Present Illness Consent: Risks, benefits, and alternatives have been discussed and questions answered. Patient agrees to proceed with procedure. Chief complaint: Esophageal obstruction Narrative: Carli Clemente is a 64 year old female with dysphagia and h/o esophageal dilation 2019 Review of Systems Review of Systems: All systems reviewed & are unremarkable except as noted in HPI and below PMFSH Past Medical History Medical History Degenerative arthritis of knee, bilateral Morbid obesity with BMI of 40.0-44.9, adult Asthma HTN (hypertension) Body mass index (BMI) 40.0-44.9, adult Arthritis of right shoulder region Arthritis of left knee Obesity Surgical History Surgical History Bimalleolar fracture of right ankle ORIF February 14, 2022 H/O shoulder surgery Left rotator cuff repair History of appendectomy Broken ankle H/O: hysterectomy Social History Social History Smoking status: Never smoker Alcohol intake: never Substance use: never Substance use type: does not use Living arrangements: with family Gender identity (if verbalized by the patient): Female Sexual Orientation (if Verbalized by the Patient): Straight or Heterosexual Spiritual care concerns: No Meds Home Medications and Allergies Home Medications ?Medication ?Instructions ?Recorded ?Confirmed ?Type lisinopril 20 mg tablet 20 mg PO HS 01/05/20 04/05/25 History acetaminophen 650 mg 650 mg PO Q12H 06/11/22 04/05/25 History tablet,extended release (Tylenol Arthritis Pain) aspirin 81 mg capsule 81 mg PO DAILY 06/11/22 04/18/25 History lisinopril 20 1 tablet PO BID 04/05/25 04/18/25 History mg-hydrochlorothiazide 12.5 mg tablet tirzepatide (weight loss) 2.5 2.5 mg subcut WEEKLY 04/05/25 04/18/25 History mg/0.5 mL subcutaneous pen injector (Zepbound) Allergies Allergy/AdvReac Type Severity Reaction Status Date / Time No Known Allergies Allergy Verified 04/18/25 11:30 Vital Signs Vital Signs - 24 hr 04/18/25 11:31 Temperature 96.9 F L Pulse Rate 72 Respiratory Rate 20 Blood Pressure 123/74 Pulse Oximetry 100 Oxygen Delivery Room Air Exam Const: General: comfortable and no acute distress HENMT: Face/Nose/Sinus: Normal nares present Eyes: General: appearance normal, both eyes and all related structures Resp: Auscultation: clear to auscultation bilaterally Cardio: Rate: regular rate Rhythm: regular rhythm GI: Inspection: non-distended GI Palp: Yes Soft to palpation Skin: General skin exam: normal color Extrem: General: normal to inspection Psych: Mental Status: mental status grossly normal Assessment and Plan Assessment and plan (1) Dysphagia: Code(s): R13.10 - Dysphagia, unspecified Status: Acute Assessment and Plan: egd
[2025-04-18 13:01] VITALS: BP 103/80; PULSE 73; RESP 15; O2SAT 100
[2025-04-18 13:11] VITALS: BP 117/60; PULSE 67; RESP 20; O2SAT 100
[2025-04-18 13:21] VITALS: BP 125/70; PULSE 67; RESP 17; O2SAT 100
== END 2025-04-18 13:36 | disposition home or self-care (01) ==
PROVIDERS: PCP Internal Medicine; Referring Provider Internal Medicine; Visit Provider Internal Medicine Gastroenterology
PROC: 0DJ08ZZ Inspection of Upper Intestinal Tract, Via Natural or Artificial Opening Endoscopic (ICD-10-PCS; CPT 43249; principal; 2025-04-18 12:30)
DX: K22.2 Esophageal obstruction (principal); J45.909 Unspecified asthma, uncomplicated; I10 Essential (primary) hypertension; M19.011 Primary osteoarthritis, right shoulder; M17.12 Unilateral primary osteoarthritis, left knee; E66.9 Obesity, unspecified; Z68.34 Body mass index [BMI] 34.0-34.9, adult; Z79.82 Long term (current) use of aspirin; Z79.85 Long-term (current) use of injectable non-insulin antidiabetic drugs; Z98.890 Other specified postprocedural states; Z87.19 Personal history of other diseases of the digestive system
CPT/HCPCS: 43249; C1726; J2003; J2704; J7120